=== PATIENT | male | born 1940 | race Caucasian/White ===

== ENCOUNTER 2018-11-09 07:43 | Inpatient (IN) ==
[2018-11-01 12:06] LABS: Basophils # (Auto) 0.1 K/mcL (0.0-0.3); Basophils % (Auto) 0.7 % (0.0-2.0); Eosinophils # (Auto) 0.1 K/mcL (0.0-0.7); Eosinophils % (Auto) 1.3 % (0.0-7.0); Granulocytes % (Auto) 75.4 % (38.0-78.0); Lymphocytes # (Auto) 1.3 K/mcL (1.5-4.8); Lymphocytes % (Auto) 13.3 % (15.5-49.0); Mean Cell Volume 101.1 fL (80.0-100.0); Mean Corpuscular HGB Conc 34.1 g/dL (31.0-36.0); Monocytes # (Auto) 0.9 K/mcL (0.1-0.9); Monocytes % (Auto) 9.3 % (1.0-12.0); Platelet Count 381 K/mcL (140-440); RBC 3.39 M/mcL (4.50-5.90); Red Cell Distribution Width 15.2 % (11.5-14.5)
[2018-11-01 12:12] LABS: Appearance,Urine CLEAR; Bacteria,Urine 0 /hpf (0); Bilirubin,Urine NEG (NEG); Color,Urine YELLOW; Glucose,Urine (UA) NEGATIVE (NEG); Leukocyte Esterase,Urine NEG /uL (NEG); Mucus,Urine FEW /hpf (0); Protein,Urine 100 mg/dL (NEG); Specific Gravity,Urine 1.012 (1.000-1.035); Urine Blood NEG mg/dL (<0.03); Urine Hyaline Cast 2 /lpf (0-2); Urine RBC < 1 /hpf (0-1); Urine Squamous Epithelial Cell 0 /hpf (0-4); Urine WBC 1 /hpf (0-4); Urobilinogen,Urine NEG (NEG)
[2018-11-01 13:04] LABS: Estimated Average Glucose(eAG) 108 mg/dL; Hemoglobin A1C 5.4 % HGB (4.0-6.0)
[2018-11-01 13:26] LABS: Blood Urea Nitrogen 24 mg/dl (8-23)
[~2018-11-09 07:43] MED LIST: CELECOXIB 200 MG CAPSULE PO SCH; PREGABALIN 75 MG CAPSULE PO SCH; ceFAZolin 1 GM VIAL IV SCH; oxyCODONE 10 MG TAB.ER.12H PO SCH
[2018-11-09] MEDS ORDERED: HEPARIN 20,000 UNIT/ML VIAL IR ONE (09:56)
[2018-11-09] MEDS ORDERED: MIDAZOLAM 5 MG/5 ML VIAL IV ONE (11:15)
[2018-11-09] MEDS ORDERED: DEXAMETHASONE 10 MG/ML VIAL IV ONE (11:15)
[2018-11-09] MEDS ORDERED: PROPOFOL 200 MG/20 ML VIAL IV ONE (11:15)
[2018-11-09] MEDS ORDERED: LIDOCAINE HCL/PF 100 MG/5 ML SYRINGE IV ONE (11:15)
[2018-11-09] MEDS ORDERED: ePHEDrine 50 MG/ML AMPUL IV ONE (11:15)
[2018-11-09] MEDS ORDERED: TRANEXAMIC ACID 1,000 MG/10 ML VIAL IV ONE ×2 (11:15→12:40)
[2018-11-09] MEDS ORDERED: fentaNYL 100 MCG/2 ML VIAL IV ONE (11:15)
[2018-11-09] MEDS ORDERED: ONDANSETRON 4 MG/2 ML VIAL IV ONE (11:15)
[2018-11-09] MEDS ORDERED: LACTATED RINGERS 250 ML IV PRN (12:36)
[2018-11-09] MEDS ORDERED: IPRATROPIUM/ALBUTEROL 3 ML AMPUL.NEB NEB PRN (12:36)
[2018-11-09] MEDS ORDERED: MEPERIDINE 25 MG/ML SYRINGE IV PRN (12:36)
[2018-11-09] MEDS ORDERED: ACETAMINOPHEN 1,000 MG/100 ML BOTTLE IV ONE (12:36)
[2018-11-09] MEDS ORDERED: NALOXONE HCL 0.4 MG/ML VIAL IV PRN (12:36)
[2018-11-09] MEDS ORDERED: PROMETHAZINE 25 MG/ML VIAL IV PRN (12:36)
[2018-11-09] MEDS ORDERED: FLUMAZENIL 0.1 MG/ML ML IV PRN (12:36)
[2018-11-09] MEDS ORDERED: diphenhydrAMINE 50 MG/ML VIAL IV PRN (12:36)
[2018-11-09] MEDS ORDERED: ONDANSETRON 4 MG/2 ML VIAL IV PRN ×2 (12:36→12:40)
[2018-11-09] MEDS ORDERED: BENZOCAINE/MENTHOL 1 LOZENGE PO PRN ×2 (12:36→12:40)
--- NOTE | 2018-11-09 12:39 | Brief Operative Note ---
Date of procedure: 11/09/18 Pre-op diagnosis: R hip severe DJD Post-op diagnosis: same Procedure: Right anterior total hip arthroplasty Grafts/Implants: Yes (Depuy Actis 8 high, +1.5 36 delta head, 56 cup, neutral Altrx liner) Anesthesia: GLMA Findings: arthritis Complications: none Surgeon: Antonino Crockett Greenhouse Manager: Edd Cannon Estimated blood loss (cc): 150 Specimens Removed/Pathology: none sent Condition: stable Disposition: PACU
[2018-11-09] MEDS ORDERED: HYDROmorphone 2 MG/ML VIAL IV PRN (12:40)
[2018-11-09] MEDS ORDERED: POLYETHYLENE GLYCOL 3350 17 GM PACKET PO PRN (12:40)
[2018-11-09] MEDS ORDERED: BISACODYL 10 MG SUPP.RECT PR PRN (12:40)
[2018-11-09] MEDS ORDERED: DEXTROSE 31 GM ORAL.SUSP PO PRN (12:40)
[2018-11-09] MEDS ORDERED: FLEETS ADULT ENEMA PR PRN (12:40)
[2018-11-09] MEDS ORDERED: oxyCODONE/APAP 5/325MG TABLET PO PRN (12:40)
[2018-11-09] MEDS ORDERED: MAGNESIUM HYDROXIDE 30 ML ORAL.SUSP PO PRN (12:40)
[2018-11-09] MEDS ORDERED: DEXTROSE 50% 50 ML VIAL IV PRN (12:40)
[2018-11-09] MEDS ORDERED: LACTATED RINGERS 1,000 ML IV SCH (12:45)
[2018-11-09] MEDS ORDERED: PSYLLIUM HUSK 6 GM PACKET PO PRN (12:45)
[2018-11-09] MEDS ORDERED: SENNOSIDES 1 TABLET PO PRN (12:45)
[2018-11-09] MEDS: fentaNYL 100 MCG/2 ML VIAL IV PRN ×4 (13:19→13:42)
--- NOTE | 2018-11-09 13:24 | XRay Report ---
CLINICAL INFORMATION: right anterior total hip COMPARISON: None. FINDINGS: Multiple digital images from the OR submitted. Final images show right total hip prosthesis in anatomic alignment. No osseous abnormality. Left hip is unremarkable. IMPRESSION: Negative Interpreted and Authenticated by: Oneil Vides 11/09/18
[2018-11-09] MEDS: 0.9 % SODIUM CHLORIDE 1,000 ML IV SCH (14:06)
[2018-11-09] MEDS: 0.9 % SODIUM CHLORIDE 10 ML SYRINGE IV SCH ×2 (14:06→22:41)
--- NOTE | 2018-11-09 14:23 | XRay Report ---
CLINICAL INFORMATION: Post-op Total Hip COMPARISON: Preoperative films 08/30/2017 FINDINGS: Right total hip prostheses is anatomically aligned. No osseous abnormality. Mild degenerative change in the left hip and both SI joints. Soft tissue swelling the surgical site seen as expected IMPRESSION: Right total hip prostheses is anatomically aligned Interpreted and Authenticated by: Oneil Vides 11/09/18
--- NOTE | 2018-11-09 16:03 | Operative Note ---
DATE OF OPERATION: 11/09/2018 PREOPERATIVE DIAGNOSIS: Right hip severe osteoarthritis. POSTOPERATIVE DIAGNOSIS: Right hip severe osteoarthritis. PROCEDURE PERFORMED: Right anterior total hip arthroplasty placing a DePuy Actis size 8 high offset femoral stem; a +1.5, 36 mm delta ceramic head ball; 58 [place] cup with a neutral AltrX liner. SURGEON: Antonino Crockett M.D. REFINERY OPERATOR CRUDE UNIT: Yunior Cannon PA-C. ANESTHESIA: General. DRAINS: None. SPECIMENS: Femoral head which was discarded. BLOOD LOSS: 100 mL. POSTOPERATIVE CONDITION: Stable. INDICATIONS FOR SURGERY: This is an 78-year-old male with progressive worsening, longstanding right hip pain. X-rays showed severe [id number] osteoarthritis. FINDINGS AT SURGERY: As above. Post implantation showed good orthodoxy of leg length and offset with components in good position. PROCEDURE IN DETAIL: The patient had been seen preoperatively. Informed consent had been obtained after discussion of risks and benefits of surgery. Risks including, but not limited to, bleeding, possibly requiring transfusion; infection, possibly requiring implant removal and long-term IV antibiotics; injury to nerves, blood vessels, other surrounding structures; anesthetic risks including heart attack, stroke or ; incomplete or no resolution of symptoms; leg length discrepancies; dislocation; fracture; DVT and pulmonary embolus risks. He understood and wished to proceed. Correct operative site was marked and then patient was taken to the operating room. General anesthesia induced. The right hip and groin were carefully prepped and draped in normal sterile fashion, and a time-out was performed verifying patient name, operative site, and plan. All skin surfaces were covered with Ioban and then a standard anterior approach incision was made with a scalpel through skin and subcutaneous tissue. Hemostasis was obtained with Bovie cautery. Careful blunt dissection was taken down onto tensor fascia and then this was undermined circumferentially. Irrisept was irrigated and a ring retractor was placed. Tensor fascia was incised in line with the muscle fibers and then careful blunt dissection taken medial to the muscle belly. Blunt cobra retractor was placed on the superior and inferior neck and then circumflex vessels were coagulated and cut and vastus fascia split distally. Anterior capsulectomy was performed as well as capsule releases and then a corkscrew was placed in the femoral head. Osteotome was used under fluoro to identify the neck cut and then oscillating tip saw used to make our osteotomy. Femoral head was removed and the acetabulum was exposed. Labrum was excised circumferentially as well as soft tissue from the floor. We began reaming directly medializing the tear drop and increasing reamer size until we got up to a 57 before we had any good rim ream. We opened a 58 three-hole [place] cup. The acetabulum was irrigated with Irrisept. After a minute we then irrigated with pulse lavage saline. The cup was then impacted at approximately 40 degrees of inclination and 25 to 30 degrees of anteversion. 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 The osteophytes were removed circumferentially with a curved osteotome and then a center hole cover was placed and a neutral AltrX liner was carefully aligned and impacted. The leg was then released from traction and externally rotated. Capsule was released around the medial neck and posterior and then the leg was extended and adducted. A Bovie was used to release capsule out to the greater trochanter and then after adequate exposure of the proximal femur was obtained, box osteotome was used to enter the canal, and awl was used to identify trajectory and then a rongeur and rasp to lateralize. We then sequentially broached with Actis broaches up to a size 8. We calcar planed and then a high offset neck trial with 1.5 head ball was placed. The hip was reduced without excessive tension. AP pelvis was taken to verify neutral rotation and AP of the nonoperative and operative hips were overlaid and showed equal leg lengths and offset. We then dislocated and removed the trial implants. The definitive stem was opened. Femoral canal was irrigated with Irrisept, after a minute copiously pulse lavaged with saline, and then the stem was impacted with the collar seating on the neck. We opened a +1.5 head ball. The stem was carefully cleaned and dried, and the head ball was briskly impacted with several blows from the mallet. We then reduced the hip and final fluoro images were taken and saved. We irrigated with Irrisept, after a minute pulse lavaged with saline, and then a running #1 Vicryl was used in two running stitches; one running proximal, one running distal for the tensor fascia closure. Ring retractor was removed and Irrisept irrigated again. After a minute pulse lavaged again and then fat was tacked to fascia with Vicryl and then 2-0 Monocryl for subcutaneous and luz elena for skin. Xeroform and sterile dressing were applied. The patient was then awakened, extubated, and transferred to recovery in stable condition. BJB:[email or web address] Job ID: [id number] Doc ID: [id number] Antonino Crockett MD
[2018-11-09] MEDS: INSULIN LISPRO 1 UNIT/0.01 ML UNIT SQ SCH ×2 (17:06→22:08)
[2018-11-09] MEDS: ceFAZolin 1 GM VIAL IV SCH (18:56)
[2018-11-09] MEDS ORDERED: ATORVASTATIN 20 MG TABLET PO SCH (21:00)
[2018-11-09] MEDS ORDERED: LATANOPROST OPHTH DROPS 2.5ML BOTTLE OD SCH (21:00)
[2018-11-09] MEDS ORDERED: SENNOSIDES 1 TABLET PO SCH (21:00)
[2018-11-09] MEDS: amLODIPine 5 MG TABLET PO SCH (22:08)
[2018-11-09] MEDS: DOCUSATE SODIUM 100 MG CAPSULE PO SCH (22:08)
[2018-11-09] MEDS: ASPIRIN 325 MG ENTERIC COATED TABLET PO SCH (22:08)
[2018-11-10] MEDS: 0.9 % SODIUM CHLORIDE 1,000 ML IV SCH ×2 (00:07→10:50)
[2018-11-10] MEDS: ceFAZolin 1 GM VIAL IV SCH (03:01)
[2018-11-10] MEDS: 0.9 % SODIUM CHLORIDE 10 ML SYRINGE IV SCH (06:12)
[2018-11-10] MEDS: INSULIN LISPRO 1 UNIT/0.01 ML UNIT SQ SCH ×2 (07:02→11:48)
[2018-11-10] MEDS ORDERED: LEVOTHYROXINE 50 MCG TABLET PO SCH (07:30)
--- NOTE | 2018-11-10 07:54 | Discharge Summary ---
Providers - Providers Patient information: Note initiated : 11/10/18 at 7:51 am Service Date, if different from initiated Date: [] Patient: Dayton Gardner 78 y/o M admitted on 11/09/18 for Right Total Hip Arthroplasty. Chief Complaint: [] Discharge date: 11/10/18 Hospitalization Hospital course: Pt was admitted for a R Total hip arthroplasty. Pt admitted on day of procedure. Was transferred to the floor for IV pain meds, IV abx, and PT. Pt spent one night on the floor prior to discharge to home. Will take ASA for DVT prophylaxis. Will f/u at [facility] in 2 weeks. Discharge diagnosis: R hip OA Exam - Exam Clean and dry: Yes Weight bearing status: as tolerated Ortho Discharge - [facility] - Patient Instructions Diet: Regular Diet Activity: activity as tolerated Total Hip Protocol: Follow activity instructions as provided by Physical Therapy. Dressing Care: May shower in 2 days - Follow Up Plan Follow Up Appointments: Edd Cannon PA-C [Physician Glass Vial Bending Conveyor Feeder] - Disposition: Home, Self-Care Prognosis: Good Rehab Potential: Good Overall status at discharge: patient is progressing back to baseline - Orders For Discharge Prescriptions: Aspirin [Ecotrin] 325 mg PO BID #60 tab.ec HYDROcodone/ACETAMINOPHEN [[place] 7.5-325 Tablet] 1 - 2 each PO Q6 #60 tab Pending Studies Resuscitation Status Full Code Diet Consistent Carbohydrate Diet Start WedNov 09 1241 Amlodipine Besylate (Norvasc) 5 mg PO BID [facility] [place] Last Admin: 11/09/18 22:08 Dose: 5 mg Documented by: COLIN Aspirin (Ecotrin) 325 mg PO BID [facility] [place] Last Admin: 11/09/18 22:08 Dose: 325 mg Documented by: COLIN Atorvastatin Calcium (Lipitor) 40 mg PO HS [facility] [place] Last Admin: 11/09/18 22:07 Dose: 40 mg Documented by: COLIN Diagnostic Test (Pha) (Accu-Chek) 1 each FS ACHS [facility] [place] Last Admin: 11/10/18 07:00 Dose: 1 each Documented by: Admin: 11/09/18 21:43 Dose: 1 each Documented by: Admin: 11/09/18 17:05 Dose: 1 each Documented by: PASTORA Docusate Sodium (Colace) 100 mg PO BID [facility] [place] Last Admin: 11/09/18 22:08 Dose: 100 mg Documented by: COLIN Hydromorphone HCl (Dilaudid) 0 mg IV Q2HP PRN PRN Reason: PAIN LEVEL > 6 Last Admin: 11/09/18 14:05 Dose: 0.5 mg Documented by: PASTORA Sodium Chloride (Sodium Chloride 0.9%) 1,000 mls @ 100 mls/hr IV .Q10H [facility] [place] Last Infusion: 11/10/18 06:22 Dose: 0 mls/hr Documented by: Admin: 11/10/18 00:07 Dose: 100 mls/hr Documented by: Infusion: 11/10/18 00:06 Dose: 100 mls/hr Documented by: Admin: 11/09/18 14:06 Dose: 100 mls/hr Documented by: PASTORA Insulin Human Lispro (Humalog) 0 unit SQ ACHS [facility] [place]; Protocol Last Admin: 11/10/18 07:02 Dose: 2 units Documented by: Admin: 11/09/18 22:08 Dose: 6 units Documented by: Admin: 11/09/18 17:06 Dose: Not Given Documented by: PASTORA Latanoprost (Xalatan Ophth Drops) 1 gtt OD HS [facility] [place] Last Admin: 11/09/18 22:09 Dose: 1 gtt Documented by: COLIN Levothyroxine Sodium (Synthroid) 50 mcg PO ACB [facility] [place] Last Admin: 11/10/18 07:05 Dose: 50 mcg Documented by: PASTORA Oxycodone/Acetaminophen (Percocet 5-325 Mg) 0 tab PO Q4HP PRN PRN Reason: PAIN LEVEL 3-6 Last Admin: 11/10/18 06:17 Dose: 1 tab Documented by: COLIN Senna (Senokot) 2 tab PO HS [facility] [place] Last Admin: 11/09/18 22:08 Dose: 2 tab Documented by: COLIN Sodium Chloride (Saline Flush) 10 ml IV Q8 [facility] [place] Last Admin: 11/10/18 06:12 Dose: Not Given Documented by: Admin: 11/09/18 22:41 Dose: Not Given Documented by: Admin: 11/09/18 14:06 Dose: Not Given Documented by: PASTORA Shift Summary 11/10/18 04:24 Shift Summary by Cyndy Nichole Patient slept off and on this shift. Alert and oriented. Patient hard of hearing. Denies any pain at this time,0/10. BSL 227 last night. Given 6 units of sliding scale insulin. IVF NS@100 infusing well on LFA. Patient voided 400,450 and 575 mls. PVR of 241, 203 and 227 mls respectively. Right hip dressing CDUI. Ice pack applied. Patient up with 1 assist using FWW and gait belt. Patient very unsteady.VSS. Initialized on 11/10/18 04:24 - END OF NOTE
[2018-11-10] MEDS ORDERED: FERROUS GLUCONATE 324 MG TABLET PO SCH (08:00)
[2018-11-10] MEDS: ASPIRIN 325 MG ENTERIC COATED TABLET PO SCH (08:56)
[2018-11-10] MEDS: DOCUSATE SODIUM 100 MG CAPSULE PO SCH (08:56)
[2018-11-10] MEDS: amLODIPine 5 MG TABLET PO SCH (08:56)
[2018-11-10] MEDS ORDERED: LOSARTAN 50 MG TABLET PO SCH (09:00)
[2018-11-10] MEDS ORDERED: ASCORBIC ACID 500 MG TABLET PO SCH (09:00)
[2018-11-10] MEDS ORDERED: FOLIC ACID 1 MG TABLET PO SCH (09:00)
[2018-11-10] MEDS ORDERED: MULTIVIT,THER IRON,CA,FA & MIN 1 TABLET PO SCH (09:00)
[2018-11-10] MEDS ORDERED: CALCIUM W/VIT D3 500 MG TABLET PO SCH (12:00)
== END 2018-11-10 13:10 | disposition home or self-care (01) | DRG 470 ==
LOC: MEDSUR 07:43
PROVIDERS: ADMIT Orthopaedic Surgery; ATTEND Orthopaedic Surgery

== ENCOUNTER 2023-09-21 11:05 | Observation (INO) ==
[2023-09-21] MEDS ORDERED: 0.9 % SODIUM CHLORIDE 1,000 ML IV ONE (11:15)
[2023-09-21 11:34] LABS: POC Calcium, Ionized 1.37 (1.16-1.32); POC Creatinine 2.6 (0.6-1.2); POC Potassium 4.3 (3.3-5.1)
[2023-09-21 12:19] LABS: Basophils # (Auto) 0.03 K/mcL (0.00-0.30); Basophils % (Auto) 0.5 % (0.0-2.0); Eosinophils # (Auto) 0.15 K/mcL (0.00-0.70); Eosinophils % (Auto) 2.3 % (0.0-7.0); Hematocrit 27.3 % (40.1-51.0); Lymphocytes # (Auto) 0.32 K/mcL (1.50-4.80); Lymphocytes % (Auto) 4.9 % (15.5-49.0); Mean Cell Volume 94.1 fL (80.0-100.0); Mean Platelet Volume 9.4 fL (8.8-12.5); Monocytes # (Auto) 0.39 K/mcL (0.10-0.90); Platelet Count 511 K/mcL (140-440); Red Cell Distribution Width 17.2 % (11.5-14.5); WBC 6.5 K/mcL (4.5-11.0)
[2023-09-21 12:44] LABS: ALT/SGPT 24 U/L (<40); AST/SGOT 25 U/L (<40); Albumin 3.1 gm/dL (3.2-5.2); Alkaline Phosphatase 82 U/L (39-117); Bilirubin,Direct < 0.2 mg/dL (0-0.3); Bilirubin,Total 0.3 mg/dL (0.1-1.0); Globulin 2.5 gm/dL (2.2-3.7)
[2023-09-21] MEDS ORDERED: 0.9 % SODIUM CHLORIDE 1,000 ML IV SCH (15:00)
[2023-09-21] MEDS ORDERED: POLYETHYLENE GLYCOL 3350 17 GM PACKET PO PRN (17:33)
[2023-09-21] MEDS ORDERED: POTASSIUM CHLORIDE 40 MEQ in DEXTROSE 5% IN WATER 500 ML IV PRN (17:33)
[2023-09-21] MEDS ORDERED: ONDANSETRON 4 MG/2 ML VIAL IV PRN (17:33)
[2023-09-21] MEDS ORDERED: MAGNESIUM SULFATE 2 GM/50 ML BAG IV PRN (17:33)
[2023-09-21] MEDS ORDERED: IPRATROPIUM/ALBUTEROL 3 ML AMPUL.NEB NEB PRN (17:33)
[2023-09-21] MEDS ORDERED: ACETAMINOPHEN 325 MG TABLET PO PRN (17:33)
[2023-09-21] MEDS ORDERED: POTASSIUM CHLORIDE 20 MEQ TABLET PO PRN ×2 (17:33)
[2023-09-21] MEDS: 0.9 % SODIUM CHLORIDE 1,000 ML IV SCH (18:27)
[2023-09-21 19:41] LABS: Appearance,Urine CLEAR (Clear); Bilirubin,Urine Negative (Negative); Color,Urine STRAW; Culture Indicated,Urine No; Glucose,Urine (UA) Negative (Negative); Ketones,Urine Negative (Negative); Leukocyte Esterase,Urine Negative /uL (Negative); Mucus,Urine FEW /hpf; Nitrate,Urine Negative (Negative); Protein,Urine 100 mg/dL (Negative); Specific Gravity,Urine 1.008 (1.000-1.035); Urine Blood Negative (Negative); Urine RBC 1 /hpf (0-3); Urine Squamous Epithelial Cell 0 /hpf (0-4); Urine WBC 0 /hpf (0-4); Urobilinogen,Urine Negative
[2023-09-21] MEDS: 0.9 % SODIUM CHLORIDE 10 ML SYRINGE IV SCH (21:25)
[2023-09-21] MEDS ORDERED: SENNOSIDES 1 TABLET PO PRN (21:57)
[2023-09-21] MEDS ORDERED: NITROGLYCERIN 0.4 MG TAB.SUBL SL PRN (21:57)
[2023-09-21] MEDS: amLODIPine 5 MG TABLET PO SCH (22:54)
[2023-09-22] MEDS: 0.9 % SODIUM CHLORIDE 1,000 ML IV SCH ×2 (04:45→09:26)
[2023-09-22] MEDS: 0.9 % SODIUM CHLORIDE 10 ML SYRINGE IV SCH ×3 (04:56→20:47)
[2023-09-22 06:41] LABS: Basophils # (Auto) 0.03 K/mcL (0.00-0.30); Basophils % (Auto) 0.5 % (0.0-2.0); Eosinophils % (Auto) 1.7 % (0.0-7.0); Hematocrit 24.9 % (40.1-51.0); Hemoglobin 7.9 g/dL (13.7-17.5); Lymphocytes # (Auto) 0.33 K/mcL (1.50-4.80); Lymphocytes % (Auto) 5.5 % (15.5-49.0); Mean Cell Volume 97.6 fL (80.0-100.0); Mean Corpuscular HGB Conc 31.7 g/dL (31.0-36.0); Mean Platelet Volume 9.2 fL (8.8-12.5); Monocytes # (Auto) 0.25 K/mcL (0.10-0.90); Monocytes % (Auto) 4.2 % (1.0-12.0); Neutrophils % (Auto) 87.6 % (38.0-78.0); Platelet Count 485 K/mcL (140-440); RBC 2.55 M/mcL (4.63-6.08); Red Cell Distribution Width 17.2 % (11.5-14.5)
[2023-09-22 07:01] LABS: ALT/SGPT 21 U/L (<40); AST/SGOT 21 U/L (<40); Albumin 2.8 gm/dL (3.2-5.2); Albumin/Globulin Ratio 1.2 (1.0-2.3); Alkaline Phosphatase 75 U/L (39-117); Bilirubin,Direct < 0.2 mg/dL (0-0.3); Bilirubin,Total 0.3 mg/dL (0.1-1.0); Blood Urea Nitrogen 45 mg/dL (8-23); Calcium 9.6 mg/dL (8.6-10.4); Carbon Dioxide 21 mmol/L (22-30); Chloride 100 mmol/L (96-108); Globulin 2.3 gm/dL (2.2-3.7); Glomerular Filtration Rate 31; Glucose 96 mg/dL (70-105); Lactate Dehydrogenase 210 U/L (135-225); Phosphorous 3.8 mg/dL (2.5-4.5); Triglycerides 52 mg/dL (<150); Uric Acid 6.5 mg/dL (2.5-8.0)
[2023-09-22] MEDS: amLODIPine 5 MG TABLET PO SCH ×2 (08:55→20:47)
[2023-09-22] MEDS: LEVOTHYROXINE 50 MCG TABLET PO SCH (08:55)
[2023-09-22] MEDS: PANTOPRAZOLE 40 MG TABLET PO SCH ×2 (08:55→20:47)
[2023-09-22] MEDS: CLOPIDOGREL 75 MG TABLET PO SCH (08:55)
[2023-09-22] MEDS: BRIMONIDINE OPHTH DROPS 1 GTT BOTTLE 5ML OU SCH ×2 (09:26→20:43)
[2023-09-22] MEDS ORDERED: LATANOPROST OPHTH DROPS 2.5ML BOTTLE OU SCH (21:00)
[2023-09-22] MEDS ORDERED: ATORVASTATIN 40 MG TABLET PO SCH (21:00)
[2023-09-23] MEDS: LABETALOL HCL 20 MG/4 ML VIAL IV PRN ×2 (03:43→07:56)
[2023-09-23] MEDS: 0.9 % SODIUM CHLORIDE 10 ML SYRINGE IV SCH (05:12)
[2023-09-23 06:39] LABS: Basophils # (Auto) 0.05 K/mcL (0.00-0.30); Basophils % (Auto) 0.9 % (0.0-2.0); Eosinophils # (Auto) 0.13 K/mcL (0.00-0.70); Eosinophils % (Auto) 2.3 % (0.0-7.0); Hematocrit 24.8 % (40.1-51.0); Hemoglobin 8.1 g/dL (13.7-17.5); Lymphocytes # (Auto) 0.49 K/mcL (1.50-4.80); Lymphocytes % (Auto) 8.6 % (15.5-49.0); Mean Cell Volume 96.1 fL (80.0-100.0); Mean Corpuscular HGB Conc 32.7 g/dL (31.0-36.0); Mean Platelet Volume 9.1 fL (8.8-12.5); Monocytes # (Auto) 0.35 K/mcL (0.10-0.90); Monocytes % (Auto) 6.1 % (1.0-12.0); Neutrophils % (Auto) 81.4 % (38.0-78.0); Platelet Count 521 K/mcL (140-440); RBC 2.58 M/mcL (4.63-6.08); Red Cell Distribution Width 17.4 % (11.5-14.5); WBC 5.7 K/mcL (4.5-11.0)
[2023-09-23 07:07] LABS: Blood Urea Nitrogen 40 mg/dL (8-23); Calcium 9.9 mg/dL (8.6-10.4); Carbon Dioxide 22 mmol/L (22-30); Chloride 100 mmol/L (96-108); Glomerular Filtration Rate 33; Glucose 102 mg/dL (70-105)
[2023-09-23] MEDS: amLODIPine 5 MG TABLET PO SCH (08:39)
[2023-09-23] MEDS: CLOPIDOGREL 75 MG TABLET PO SCH (08:39)
[2023-09-23] MEDS: LEVOTHYROXINE 50 MCG TABLET PO SCH (08:39)
[2023-09-23] MEDS: PANTOPRAZOLE 40 MG TABLET PO SCH (08:39)
[2023-09-23] MEDS: BRIMONIDINE OPHTH DROPS 1 GTT BOTTLE 5ML OU SCH (08:44)
[2023-09-23] MEDS ORDERED: cloNIDine HCL 0.1 MG TABLET PO SCH (09:45)
[2023-09-23] MEDS ORDERED: traZODone HCL 50 MG TABLET PO SCH (21:00)
[2023-09-23] MEDS ORDERED: MELATONIN 3 MG TABLET PO SCH (21:00)
[2023-09-26] MEDS ORDERED: METHOTREXATE SODIUM 2.5 MG TABLET PO SCH (09:00)
== END 2023-09-23 13:47 ==
LOC: ED 11:05 → MEDSUR 11:05
PROVIDERS: ADMIT Internal Medicine; ATTEND Internal Medicine